=== PATIENT | female | born 1960 | race African-American/Black ===

== ENCOUNTER 2016-04-30 12:43 | Observation (INO) | payer OTHER ==
--- NOTE | ~2016-04-30 | CR72 ---
[facility] A Service of [facility] RADIOLOGY TEXT RESULTS PATIENT: YAW GARCIA LOCATION: [facility] : 62 UNIT #: [id number] AGE: [address]: Shaun Olivas MD SEX: F ORDER DR: [id number] [facility] [address] [facility]. [place], [place] [address] [id number] MR#: [id number] Acc #: [id number] NAME: YAW GARCIA : 1960 SEX: F STUDY DATE/TIME: 04/30/2016 12:01 UNIT: [facility] ROOM: STUDY DESCRIPTION: CR Chest Single View Portable Attending Physician: Shaun Olivas M.D. Ordering Physician: Shaun Olivas M.D. Primary Care Physician: [facility] MEDICAL IMAGING REPORT This report is preliminary unless electronic signature is present EXAM Portable chest. INDICATIONS 55-year-old female with shortness of breath and cough for a couple of days. COMPARISON STUDIES Comparison with 07/13/2015. FINDINGS The lungs are well expanded. There is no definite acute infiltrate. Heart size is normal. Degenerative change of the shoulders. IMPRESSION No active disease. Dictated by... Blake Greenberg M.D. THIS IS AN ELECTRONICALLY VERIFIED REPORT lBake Greenberg M.D. at 04/30/2016 2:47 PM ZOILA/manuel TD: 04/30/2016 14:26 JOB #: [id number] MEDICAL IMAGING REPORT COPY
--- NOTE | ~2016-04-30 | CT4 ---
[facility] A Service of [facility] RADIOLOGY TEXT RESULTS PATIENT: YAW GARCIA LOCATION: [facility] 309- : 62 UNIT #: [id number] AGE: [address]: Madhuri Mcrae MD SEX: F ORDER DR: [id number] [facility]. [place], [place] [address] [id number] MR#: [id number] Acc #: [id number] NAME: YAW GARCIA : 1960 SEX: F STUDY DATE/TIME: 05/02/2016 7:47 [facility]IT: [facility] ROOM: [facility] STUDY DESCRIPTION: CT Abd and Pelv Wo Cont Attending Physician: Clover Herndon M.D. Ordering Physician: Clover Herndon M.D. Primary Care Physician: [facility] MEDICAL IMAGING REPORT This report is preliminary unless electronic signature is present EXAM CT abdomen and pelvis without contrast. INDICATION Right lower quadrant abdominal pain and constipation since 04/21/2016. PROCEDURE Noncontrast CT of the abdomen and pelvis. This CT exam was performed with one or more of the following radiation dose reduction techniques: automatic exposure control, adjustment of mA and/or kV according to patient size, and iterative reconstruction. COMPARISON STUDIES 04/27/2015 FINDINGS ABDOMEN WITHOUT CONTRAST: Included lung bases clear. Liver measures 18.9 cm. No liver or splenic mass. Adrenal glands, pancreas, gallbladder unremarkable. Moderate colonic stool. Extensive diffuse colonic diverticulosis. No convincing evidence for acute complication. Appendix is normal. Tiny nonobstructing calculus in the right kidney. Mild nonspecific bilateral perinephric stranding. No hydronephrosis. PELVIS WITHOUT CONTRAST: Cystic structures in the right adnexa are similar. Index cyst measures up to 3.3 cm. No free pelvic fluid. No aggressive appearing bone lesion. IMPRESSION 1. Constipation. 2. Extensive uncomplicated colonic diverticulosis. 3. Cystic change in the right ovary is stable. Probably represents benign cysts. [facility] A Service of [facility] RADIOLOGY TEXT RESULTS PATIENT: YAW GARCIA LOCATION: [facility] 309-01 : 62 UNIT #: [id number] AGE: [address]: Madhuri Mcrae MD SEX: F ORDER DR: 4. Tiny nonobstructing calculus in the right kidney. Dictated by... John Obregon M.D. THIS IS AN ELECTRONICALLY VERIFIED REPORT John Obregon M.D. at 05/03/2016 9:51 AM SERGE/colette TD: 05/02/2016 13:10 JOB #: [id number] MEDICAL IMAGING REPORT COPY
--- NOTE | ~2016-04-30 | DS ---
Unit #: [id number] #: [id number] Patient: YAW GARCIA [id number] [address] [id number] I MR#: [id number] NAME: YAW GARCIA ROOM: 309 Age: 55 Sex: F Admission Date: 04/30/2016 : 1960 Discharge Date: Attending Physician: Madhuri Mcrae M.D. Primary Care Physician: [facility] DISCHARGE SUMMARY DISCHARGE DIAGNOSES 1. Acute hypoxic respiratory failure. 2. Chronic obstructive pulmonary disease with exacerbation. 3. Smoking. 4. Hypertension. 5. Hyperlipidemia. 6. Diabetes mellitus type 2, controlled. 7. Chronic pain. 8. Ovarian cyst. 9. Constipation. 10. Diverticulosis, extensive uncomplicated colonic, found on CT scan of the abdomen. CONSULTATIONS None. PROCEDURES None. DIAGNOSTIC STUDIES LABORATORY: Glucose 163. Hemoglobin A1c 5.7. Troponin 0.03. IMAGING: CT scan of the abdomen and pelvis shows constipation, extensive uncomplicated colonic diverticulosis, and cystic change in the right ovary is stable and probably represents benign cysts. CARDIOLOGY: EKG shows normal sinus rhythm. ALLERGIES None. DISCHARGE MEDICATIONS 1. Symbicort 160 mcg 2 inhalations b.i.d. 2. Metformin 500 p.o. b.i.d. 3. Cardizem-CD 120 p.o. daily. 4. Colace 100 p.o. b.i.d. [id number]. 5. Humibid-LA 600 mg p.o. b.i.d. 6. Lipitor 20 daily. 7. Lisinopril 40 daily. 8. Singulair 10 daily. 9. Diclofenac 75 mg p.o. b.i.d. p.r.n. 10. Methocarbamol 500 mg q.8 p.r.n. muscle spasm. 11. Doxycycline 100 mg p.o. b.i.d. 12. Nitroglycerin 0.4 sublingual p.r.n. chest pain. Unit #: [id number] #: [id number] Patient: YAW GARCIA 13. Albuterol MDI 2 puffs inhalation q.4 p.r.n. shortness of breath. 14. Prednisone tapering dose. HOSPITAL COURSE A 55-year-old admitted because of shortness of breath. Acute hypoxic respiratory failure from COPD, currently resolved. Acute COPD with exacerbation. Started on IV Solu-Medrol, Symbicort, and DuoNebs. Currently breathing better. Patient will be discharged on prednisone tapering dose, albuterol, Symbicort, Spiriva, and doxycycline. Constipation with colonic diverticulosis. I recommended a high-fiber diet with Colace on a regular basis. She will get MiraLax and Dulcolax before discharge. DISPOSITION Patient will be discharged home. FOLLOWUP With family physician in one week's time. Dictated by... Noris Quick TD: 05/03/2016 14:02 JOB #: [id number] DISCHARGE SUMMARY X Madhuri Mcrae MD X DISCHARGE SUMMARY
--- NOTE | ~2016-04-30 | EKG ---
PATIENT: YAW GARCIA UNIT #: [id number] Ventricular Rate: 94 BPM Atrial Rate: 94 BPM P-R Interval: 156 ms QRS Duration: 82 ms Q-T Interval: 390 ms QTC Calculation(Bezet): 487 ms P [place]: 71 degrees Calculated R [place]: 47 degrees Calculated T [place]: 48 degrees Diagnosis Line: Normal sinus rhythm with sinus arrhythmia Diagnosis Line: Possible Left atrial enlargement Diagnosis Line: Prolonged QT Diagnosis Line: Abnormal ECG Diagnosis Line: When compared with ECG of 13-OCT-2010 20:02, Diagnosis Line: No significant change was found Diagnosis Line: Confirmed by ROSENDO ARVIZU MD ([id number]) on 05/02/2016 Diagnosis Line: 2:50:09 PM INTERPRETING MD: NOLBERTO RHODES
--- NOTE | ~2016-04-30 | HP ---
Unit #: [id number] #: [id number] Patient: YAW GARCIA [id number] [facility]. [place], [place] [address] [id number] E MR#: [id number] NAME: YAW GARCIA ROOM: Age: 55 Sex: F Admission Date: 04/30/2016 : 1960 Attending Physician: Shaun Villalobos M.D. Primary Care Physician: Urmila Brooks [facility] HISTORY AND PHYSICAL CHIEF COMPLAINT Short of breath. HISTORY OF PRESENT ILLNESS The patient is a 55-year-old female with past medical history of COPD, hypertension, hyperlipidemia, diabetes, chronic pain who presented to the emergency department for evaluation of the above. The patient states that she has had a two-day history of increasing shortness of breath and occasionally productive cough. She denies any fever or chills. No chest pain. She denies any vomiting or diarrhea. No urinary symptoms. In the emergency department, the patient's oxygen saturation was 96% on 2 L. Chest x-ray shows nothing acute. She was given 125 mg of Solu-Medrol. She was being admitted to [facility] for evaluation and further treatment. PAST MEDICAL HISTORY 1. Admission to [facility], October 14 through October 15, 2010 for COPD exacerbation. 2. COPD, not on home oxygen. The patient has seen Dr. Chaves in the hospital. She states that she does not see a fraud manager as an outpatient. 3. Hypertension. 4. Hyperlipidemia. 5. Diabetes. 6. Chronic pain. 7. Ovarian cyst. PAST SURGICAL HISTORY . SOCIAL HISTORY The patient lives with her fiancee. She smokes two cigarettes daily. She denies alcohol use. She is on disability. FAMILY HISTORY Notable for lung cancer. ALLERGIES Tomato is listed as a food allergy. HOME MEDICATIONS 1. Methocarbamol 500 mg q.8 hours p.r.n. 2. Diclofenac 75 mg twice daily p.r.n. Unit #: [id number] #: [id number] Patient: YAW GARCIA 3. Singulair 10 mg daily. 4. Nitroglycerin 0.4 mg sublingual p.r.n. 5. Advair 500/50 inhaled twice daily. 6. Lipitor 20 mg at bedtime. 7. Hydrochlorothiazide 25 mg daily. 8. Zestril 40 mg daily. 9. Metformin 500 mg twice daily. 10. Diltiazem 120 mg daily. REVIEW OF SYSTEMS A 10-point review of systems is negative except as indicated in the HPI. The patient states that her blood sugars have been in the low 100s. She denies being on antibiotics or steroids within the past month. The patient has never had a sleep study. DIAGNOSTIC STUDIES LABORATORY: Hemoglobin and hematocrit 15.9 and 46.6 respectively. Basic metabolic panel notable for sodium of 134, glucose 130. Rapid flu screen is negative. IMAGING: Chest x-ray shows nothing acute. PHYSICAL EXAMINATION VITAL SIGNS: Temperature is 98.6, pulse 110, respirations 20, blood pressure 150/80, oxygen saturation is 96% on 2 L. GENERAL: The patient is an -[place] female who is awake and alert, in no acute distress. HEENT: The head is atraumatic. Mucous membranes are moist. NECK: Supple. Trachea is midline. CARDIOVASCULAR: Regular rate and rhythm. LUNGS: Demonstrate scattered inspiratory and expiratory wheezes. Breathing is not labored with conversation. ABDOMEN: Soft, nontender with bowel sounds present in all four quadrants. EXTREMITIES: Nontender with no pedal edema. NEUROLOGIC: The patient is awake and alert. She follows commands. PSYCHIATRIC: Mood and affect are normal. The patient is cooperative. SKIN: Skin of examined areas is warm and dry. ASSESSMENT The patient is a 55-year-old female with: 1. Chronic obstructive pulmonary disease exacerbation: The patient received 125 mg of Solu-Medrol in the emergency department. 2. Tobacco abuse. 3. Hypertension. 4. Hyperlipidemia. 5. Diabetes. 6. Chronic pain. PLAN 1. Admit to intermediate level. 2. Supplemental oxygen 2 to 4 L to maintain saturations greater than 92%. 3. DuoNeb q.4 hours while awake and q.2 hours p.r.n. 4. Solu-Medrol 80 mg IV q.12 hours. 5. Doxycycline 100 mg p.o. b.i.d. for possible acute bronchitis. 6. Mucinex 600 mg p.o. b.i.d. 7. Check EKG and cardiac enzymes now. 8. Hemoglobin A1c. Unit #: [id number] #: [id number] Patient: YAW GARCIA 9. Low-dose sliding scale insulin with Accu-Cheks. 10. Healthy heart, consistent carb diet. 11. Protonix for gastrointestinal prophylaxis since the patient will be on Solu-Medrol. 12. Repeat labs in the morning. 13. Sequential compression devices for deep venous thrombosis prophylaxis. 14. Additional workup and consultants based on above. 1. Dictated by Noris Chaney/cierra TD: 04/30/2016 14:58 JOB #: [id number] HISTORY AND PHYSICAL X Olamide Craft MD HISTORY AND PHYSICAL
[2016-04-30 12:12] LABS: BASOPHIL# 0.1 X10e3 (0-0.3); BASOPHIL% 1.1 % (0-2.5); EOSINOPHIL# 0.1 X10e3 (0-0.7); EOSINOPHIL% 1.2 % (0.0-7.0); HEMATOCRIT 46.6 % (35.0-45.0); HEMOGLOBIN 15.9 gm/dL (12.0-16.0); LYMPHOCYTE# 1.2 X10e3 (1.0-3.5); LYMPHOCYTE% 22.1 % (17.0-45.0); MEAN CELL VOLUME 98.1 FL (83-96); MEAN CORPUSCULAR HEMOGLOBIN 33.6 PG (28-34); MEAN CORPUSCULAR HGB CONC 34.2 g/dL (30-36); MEAN PLATELET VOLUME 9.2 FL (6.5-11.5); MONOCYTE# 0.8 X10e3 (0-1.0); MONOCYTE% 13.8 % (3.0-12.0); NEUTROPHIL# 3.4 X10e3 (1.5-7.1); NEUTROPHIL% 61.8 % (40-75); PLATELET COUNT 169 X10e3 (140-420); RED BLOOD COUNT 4.75 X10e (3.90-5.30); RED CELL DISTRIBUTION WIDTH 13.1 % (11.0-15.5); WHITE BLOOD COUNT 5.5 X10e3 (4.0-10.5)
[2016-04-30 12:13] LABS: DIFF IND NO
[2016-04-30 12:34] LABS: BLOOD UREA NITROGEN 16 mg/dL (9-23); BUN/CREATININE RATIO 13.33; CARBON DIOXIDE 25 mmol/L (22-31); CHLORIDE 97 mmol/L (100-111); CREATININE SERUM 1.2 mg/dL (0.6-1.4); GLOM FILT RATE Estimated ABOVE60 mL/min (>60); GLUCOSE FASTING 130 mg/dL (70-110); POTASSIUM 4.5 mmol/L (3.5-5.1); SODIUM 134 mmol/L (135-145)
[~2016-04-30 12:43] MED LIST: ACETAMINOPHEN325 MG PO; ADVAIR 250-501 EACH IH; ADVAIR 2501 DISK W/D PO; ADVAIR 500-501 EACH IH; ADVAIR 5001 DISK W/D PO; ALBUTEROL MININEB INH; ALBUTEROL MININEB NEB; ALBUTEROL0.83 MG/ML IH; ALBUTEROL17 G1 IH; AMLODIPINE BESY10 MG PO; AMPICILLIN PO; ASPIRIN PO; ASPIRIN81 M1 PO; BENZONATATE PO; CALCIUM 600 +1 EAC3 PO; CARDIZEM60 MG PO; CIPRO PO; COLACE PO; COMBIVENT INH14.7 GM INH; COMBIVENT MININEB INH; COREG PO; COREG12.5 MG PO; CRESTOR PO; DOXYCYCLINE HY100 M3 PO; DOXYCYCLINE PO; DUONEB 2.5-0.5 M3 ML IN; DUONEB 2.5-0.5 M3 ML NEB; DUONEB 2.5-0.5 M3 ML PO; GLUCOTROL PO; GUAIFENESIN600 MG PO; HCTZ PO; HYDROCHLOROTH12.5 M1 PO; HYDROCHLOROTHIA25 MG PO; K-DUR20 ME1 PO; LEVAQUIN PO; LISINOPRIL PO; MEDROL PO; MUCINEX PO; NITROGYLCERIN SUBLINGUAL; NITROSTAT0.4 MG SL; NORVASC PO; PATIENT'S PHARMACY; PREDNISONE PO; PREDNISONE1 MG PO; PREDNISONE10 MG PO; PREDNISONE10 MG/DOSE PO; PRINIVIL20 M1 PO; PRINIVIL40 MG PO; PROVENT SR1 EACH NS; PROVENTIL 90 MCG INH; SINGULAIR PO; STERAPRED5 MG/DOSE1 PO; VIBRAMYCIN100 M1 PO; ZITHROMAX PO; ZOCOR PO; ZOCOR20 MG PO; ZOCOR80 MG; ZOCOR80 MG PO
[2016-04-30 13:15] LABS: INFLUENZA A NEG (NEG); INFLUENZA B NEG (NEG)
[2016-04-30] MEDS ORDERED: HYDROCHLOROTHIA25 MG PO (13:52)
[2016-04-30] MEDS ORDERED: LIPITOR20 MG PO (13:52)
[2016-04-30] MEDS ORDERED: ZESTRIL40 MG PO (13:53)
[2016-04-30] MEDS ORDERED: METFORMIN HCL500 M1 PO (13:53)
[2016-04-30] MEDS ORDERED: DILTIAZEM 24HR120 MG PO (13:55)
[2016-04-30] MEDS ORDERED: METHOCARBAMOL500 MG PO (13:56)
[2016-04-30] MEDS ORDERED: VOLTAREN75 MG PO (13:57)
[2016-04-30] MEDS ORDERED: NITROSTAT0.4 MG SL (13:58)
[2016-04-30] MEDS ORDERED: SINGULAIR PO (13:58)
[2016-04-30] MEDS ORDERED: ADVAIR 500-501 EACH INH (14:00)
[2016-04-30 15:36] LABS: POC - CKMB 1.1 ng/mL (0.0-7.9); POC - TROPONIN <0.05 ng/mL (<=0.05)
[2016-04-30 16:39] LABS: %MB 1.2 % (0.0-4.0); MB 1.5 ng/ml
[2016-04-30 21:44] LABS: %MB 1.3 % (0.0-4.0); MB 1.4 ng/ml
[2016-05-01 05:40] LABS: HEMATOCRIT 47.2 % (35.0-45.0); HEMOGLOBIN 15.7 gm/dL (12.0-16.0); MEAN CELL VOLUME 100.8 FL (83-96); MEAN CORPUSCULAR HEMOGLOBIN 33.5 PG (28-34); MEAN CORPUSCULAR HGB CONC 33.2 g/dL (30-36); MEAN PLATELET VOLUME 10.1 FL (6.5-11.5); RED BLOOD COUNT 4.69 X10e (3.90-5.30); RED CELL DISTRIBUTION WIDTH 12.8 % (11.0-15.5); WHITE BLOOD COUNT 6.8 X10e3 (4.0-10.5)
[2016-05-01 07:05] LABS: ALBUMIN SERUM 4.1 g/dL (3.5-5.0); BILIRUBIN,TOTAL 0.7 mg/dL (0.2-2.0); BUN/CREATININE RATIO 17.85; CALCIUM SERUM 10.1 mg/dL (8.4-10.2); CREATININE SERUM 1.4 mg/dL (0.6-1.4); GLOM FILT RATE Estimated 50.4 mL/min (>60); POTASSIUM 4.5 mmol/L (3.5-5.1); PROTEIN TOTAL SERUM 7.9 g/dL (6.0-8.3)
[2016-05-03] MEDS ORDERED: SYMBICORT INH (17:43)
[2016-05-03] MEDS ORDERED: CARDIZEM CD120 M1 PO (17:45)
[2016-05-03] MEDS ORDERED: DOCUSATE SODIU100 MG PO (17:46)
[2016-05-03] MEDS ORDERED: HUMIBID-LA600 MG DOB (17:47)
[2016-05-03] MEDS ORDERED: VIBRAMYCIN100 M1 PO (17:50)
[2016-05-03] MEDS ORDERED: PREDNISONE10 MG PO (17:53)
[2016-05-03] MEDS ORDERED: ALBUTEROL20 ml INH (17:56)
== END 2016-05-03 18:54 | disposition home or self-care (01) ==
LOC: CED 12:43 → CEDOF 14:30 → C3A PCU 17:11
PROVIDERS: Emergency Medicine; Family Medicine
DX: J96.01 Acute respiratory failure with hypoxia (principal); J44.1 Chronic obstructive pulmonary disease with (acute) exacerbation; F17.200 Nicotine dependence, unspecified, uncomplicated; I10 Essential (primary) hypertension; E78.5 Hyperlipidemia, unspecified; E11.9 Type 2 diabetes mellitus without complications; Z79.84 Long term (current) use of oral hypoglycemic drugs; Z23 Encounter for immunization; G89.29 Other chronic pain; K57.30 Diverticulosis of large intestine without perforation or abscess without bleeding; K59.00 Constipation, unspecified; N83.201 Unspecified ovarian cyst, right side; N20.0 Calculus of kidney; Z79.899 Other long term (current) drug therapy; Z80.1 Family history of malignant neoplasm of trachea, bronchus and lung; Z91.018 Allergy to other foods
CPT/HCPCS: 36415; 71010; 74176; 80048; 80053; 82550; 82553; 82947; 83036; 84484; 85025; 85027; 87804; 90688; 93005; 94640; 94664; 94760; 96374; 96376; 99285; G0008; G0378; J1815; J2930